=== PATIENT | female | born 1995 | race Caucasian/White ===

== ENCOUNTER 2017-04-28 17:01 | Emergency (ER) | payer MEDICAID, OTHER ==
[~2017-04-28] VITALS: Ht 165.1 cm; Wt 59.0 kg
[~2017-04-28 17:01] MED LIST: IBUP600 PO; OXYC1SOL5 PO
[2017-04-28 17:04] VITALS: BP 113/59; PULSE 87; RESP 15; TEMP 98.1; O2SAT 100
[2017-04-28] MEDS ORDERED: ONDANSETRON HCL 4 MG/2 ML VIAL IVP ONE (17:45)
[2017-04-28] MEDS ORDERED: SODIUM CHLORIDE 0.9% FLUSH 10 ML FLUSH IVF PRN (17:45)
[2017-04-28] MEDS ORDERED: SODIUM CHLOR 0.9% 1000 ML INJ 1,000 ML IV ONE (17:45)
[2017-04-28 18:06] VITALS: BP 96/64; PULSE 75
[2017-04-28] MEDS ORDERED: ZOFR4TAB PO (18:10)
--- NOTE | 2017-04-28 18:10 | PD ---
HPI . Nausea Chief Complaint: GI Complaint Time Seen by Provider: 17:25 Travel History International Travel<30 days: No Contact w/Intl Traveler<30days: No Traveled to known affect area: No History of Present Illness HPI 22-year-old female presents with nausea and vomiting for 1-1/2 weeks. Symptoms are getting progressively worse. Patient took a test on Friday which she reports was positive. She had 4 episodes of emesis yesterday. She has tried eating saltine crackers with no relief. No other known aggravating or alleviating factors. She is having some associated lower abdominal pain that is bilateral, no radiation. Describes the pain as sharp and constant. She denies any vaginal bleeding. Reports some clear discharge. PFSH Past Medical History ADHD: No Bipolar Disorder: Yes Cancer: No Cardiovascular Problems: No Diabetes: No (gestational) Diminished Hearing: No Psychiatric: Yes (HBS 2 YEARS AGO. ASA W DYSTHYMIC DIS.) Immunizations Current: Yes Seizures: No Thyroid Disease: No Ulcer: No Tetanus Vaccination: < 5 Years ?: LMP: 03/02/2017 : 3 Para: 1 : 1 Past Surgical History Other Surgery: No Social History Alcohol Use: No Tobacco Use: No Substance Use: Yes (marijuana) Allergies-Medications (Allergen,Severity, Reaction): Coded Allergies: Calamine (Verified Allergy, Severe, SWELLING, 04/28/17) Reported Meds & Prescriptions Reported Meds & Active Scripts Active Zofran (Ondansetron HCl) 4 Mg Tab 4 Mg PO Q6HR PRN Review of Systems Except as stated in HPI: all other systems reviewed are Neg General / Constitutional: Positive: Other (shaking) Gastrointestinal: Positive: Nausea, Vomiting, Diarrhea, Abdominal Pain Genitourinary: Positive: Pelvic Pain, No: Urgency, Frequency, Dysuria, Vaginal Bleeding Physical Exam Narrative GENERAL: Awake and alert and in no acute distress. SKIN: Warm and dry. HEAD: Atraumatic. Normocephalic. EYES: Pupils equal and round. NECK: Trachea midline. CARDIOVASCULAR: Regular rate and rhythm. RESPIRATORY: No accessory muscle use. GI/: Abdomen is soft and nontender. Nondistended. No masses palpated. Uterus is not palpable above the symphysis pubis. MUSCULOSKELETAL: No obvious deformities. No edema. NEUROLOGICAL: Awake and alert. No obvious cranial nerve deficits. Motor grossly within normal limits. Normal speech. PSYCHIATRIC: Appropriate mood and affect; insight and judgment normal. Data Data Last Documented VS Vital Signs Date Time Temp Pulse Resp B/P Pulse Ox O2 Delivery O2 Flow Rate FiO2 04/28/17 18:06 75 96/64 04/28/17 17:04 98.1 15 100 Orders Ed Poc Ultrasound (04/28/17 17:32) Urinalysis - C+S If Indicated (04/28/17 17:41) Sodium Chloride 0.9% Flush (Ns Flush) (04/28/17 17:45) Ondansetron Inj (Zofran Inj) (04/28/17 17:45) Ed Urine Pregnancytest Poc (04/28/17 17:41) Sodium Chlor 0.9% 1000 Ml Inj (Ns 1000 M (04/28/17 17:45) Labs Laboratory Tests Test 04/28/17 18:05 Urine Color YELLOW Urine Turbidity HAZY Urine pH 6.5 Urine Specific [place] 1.015 Urine Protein 30 mg/dL Urine Glucose (UA) NEG mg/dL Urine Ketones TRACE mg/dL Urine Occult Blood NEG Urine Nitrite NEG Urine Bilirubin NEG Urine Urobilinogen LESS THAN 2.0 MG/DL Urine Leukocyte Esterase NEG Urine RBC 1 /hpf Urine WBC 2 /hpf Urine Squamous Epithelial 26 /hpf Cells Urine Bacteria RARE /hpf Urine Mucus MOD /lpf Microscopic Urinalysis Comment CULT NOT INDICATED MDM Medical Decision Making Medical Screen Exam Complete: Yes Emergency Medical Condition: Yes Differential Diagnosis Differential diagnosis includes but is not limited to viral gastritis, food poisoning, pancreatitis, pneumonia, hepatitis, acute coronary syndrome, Narrative Course Patient presents with the chief complaint of nausea and vomiting in the setting of . She does have lower abdominal discomfort but a benign abdominal exam. She does not appear dehydrated. She'll be treated with IV fluids and IV Zofran. Nausea and vomiting are improved. Patient will be discharged home. Procedures Procedure Narrative Emergency Department Pelvic ultrasound was performed with patient consent. The curvilinear probe was used in the transverse and sagittal views within the suprapubic region revealing an intrauterine yolk sac. Diagnosis Primary Impression: Vomiting affecting Referrals: [facility] Patient Instructions: Acute Nausea and Vomiting (DC), General Instructions Med/Other Pt SpecificInfo: Prescription(s) given Scripts Ondansetron (Zofran)4 Mg Tab4 Mg PO Q6HR PRN (NAUSEA OR VOMITING) #30 TAB Ref 0 Prov:Milli Garcia MD 04/28/17 Disposition: 01 DISCHARGE HOME Condition: Stable Milli Garcia MD Apr 28, 2017 18:10
[2017-04-28 18:21] LABS: BACTERIA, URINE RARE /hpf; BLOOD, URINE NEG (NEG); COMMENT (UR) CULT NOT INDICATED; CULTURE IF INDICATED CULT NOT INDICATED; GLUCOSE,URINE NEG (NEG); KETONE, URINE TRACE mg/dL (NEG); MUCUS URINE MOD /lpf (OCC); NITRITE,URINE NEG (NEG); PH, URINE 6.5 (5.0-8.5); SQUAMOUS EPITHELIAL CELL URINE 26 /hpf (0-5); URINE COLOR YELLOW (YELLW/STRAW)
== END 2017-04-28 19:07 | disposition home or self-care (01) ==
LOC: NEPD 17:01
DX: O21.9 Vomiting of pregnancy, unspecified (principal); R10.30 Lower abdominal pain, unspecified; Z86.59 Personal history of other mental and behavioral disorders; Z3A.00 Weeks of gestation of pregnancy not specified
CPT/HCPCS: 81001; 84703; 96374; 99284; J2405; J7030

== ENCOUNTER 2017-08-21 15:36 | Emergency (ER) | payer MEDICAID, OTHER ==
[~2017-08-21 15:36] MED LIST changes: -IBUP600 PO; -OXYC1SOL5 PO; +ZOFR4TAB PO
--- NOTE | 2017-08-21 16:27 | PD ---
HPI Chief Complaint rib pain, lower abdominal/back pain Date Seen: Aug 21, 2017 Time Seen: 16:14 Travel History International Travel<30 Days: No Contact w/Intl Traveler<30Days: No Known Affected Area: No History of Present Illness HPI Pt is a @ 23.1wks with PNC with Dr. Cardoso. She presents for evaluation of rib and abdominal/back pain which started last evening and continued today. Pt states it feels like she can't take in a deep breath due to discomfort in her lower ribs. No cough, SOB, or CP/pressure. Her son recently had RSV at home but she has not been ill. Her abdominal pain is vague and diffuse and runs into her lower L sciatica. She denies dysuria/hematuria. She was tx'd for chlamydia and BV on 06/17. No KIRK yet. +FM. No LOF, VB, or ctx. She has not taking any tylenol as she does not want to take any medications in . Weeks Gestation: 23 Para: 1 : 3 History Past Medical History Medical History: Denies Significant Hx Obstetric History Obstetric History x1 TAB x1 (D&C) Past Surgical History Narrative Surgical D&C Family History Family History: Negative Social History Alcohol Use: No Tobacco Use: No Substance Abuse: Yes (occasional MJ use) Allergies-Medications (Allergen,Severity, Reaction): Coded Allergies: calamine (Unverified Allergy, Severe, SWELLING, 06/10/17) Home Meds Active Scripts Ondansetron (Zofran) 4 Mg Tab, 4 MG PO Q6HR Y for NAUSEA OR VOMITING, #30 TAB 0 Refills Prov:Milli Garcia MD 04/28/17 Review of Systems Except as stated in HPI: all other systems reviewed are Neg Physical Exam Narrative GENERAL: Well-nourished, well-developed patient. SKIN: Warm and dry. HEAD: Normocephalic and atraumatic. EYES: No scleral icterus. No injection or drainage. CARDIOVASCULAR: Regular rate and rhythm without murmurs, gallops, or rubs. RESPIRATORY: Breath sounds equal bilaterally. No accessory muscle use. ABDOMEN/GI: Abdomen soft, non-tender, fundus just above umbilicus and non-tender , +suprapubic TTP, no rebound or guarding EXTREMITIES: No cyanosis or edema. BACK: Nontender without obvious deformity. No CVA tenderness. NEUROLOGICAL: Awake and alert. Motor and sensory grossly within normal limits. FHTs: present @ 168 TOCO: no ctx seen Data Data Vital Signs Reviewed: Yes MDM Plan 22y/o @ 23.1wks with 1. IUP -- +FHTs 2. abdominal pain -- suprapubic in location -- recent dx of CT/BV with tx but no KIRK -- no rebound/guarding -- UA demonstrates trace blood, no LE/nitrites -- likely RLP 3. back pain -- no CVA tenderness -- consistent with sciatica 4. rib pain -- lungs clear and O2 sats 100% -- likely musculoskeletal -- declines tylenol or flexeril Dispo: d/c home in stable condition Diagnosis Diagnosis: Primary Impression: Additional Impressions: 23 weeks gestation of Abdominal pain affecting Rib pain Sciatic neuralgia Disposition: 01 DISCHARGE HOME Radha Jacob MD Aug 21, 2017 16:27
== END 2017-08-21 16:48 | disposition home or self-care (01) ==
LOC: HOBED 15:36
DX: O26.892 Other specified pregnancy related conditions, second trimester (principal); R10.9 Unspecified abdominal pain; R07.81 Pleurodynia; G58.8 Other specified mononeuropathies; Z3A.23 23 weeks gestation of pregnancy
CPT/HCPCS: 99283

== ENCOUNTER → 2017-11-11 | Outpatient (CLI) | payer MEDICAID | LOC: HPND 09:54 | PROVIDERS: ATTEND Obstetrics & Gynecology | DX: O26.843 Uterine size-date discrepancy, third trimester (principal); O36.5930 Maternal care for other known or suspected poor fetal growth, third trimester, not applicable or unspecified | CPT/HCPCS: 76816 ==

== ENCOUNTER 2017-12-03 20:55 | Emergency (ER) | payer MEDICAID ==
--- NOTE | 2017-12-03 21:31 | PD ---
HPI Chief Complaint Complains of a pressure possible contractions Date Seen: Dec 03, 2017 Time Seen: 21:25 Travel History International Travel<30 Days: No Contact w/Intl Traveler<30Days: No Known Affected Area: No History of Present Illness HPI 42-year-old white female A1 at [address] Cardoso for care presents complaining of pelvic pain and pressure possible contractions. Denies bleeding or leakage of fluid. heart rate tracing is reactive and there are no regular contractions only occasional one Weeks Gestation: 38 Para: 1 : 3 History Obstetric History Obstetric History One vaginal delivery and one early loss Social History Alcohol Use: No Tobacco Use: No Substance Abuse: No Allergies-Medications (Allergen,Severity, Reaction): Coded Allergies: calamine (Unverified Allergy, Severe, SWELLING, 06/10/17) Home Meds Active Scripts Ondansetron (Zofran) 4 Mg Tab, 4 MG PO Q6HR Y for NAUSEA OR VOMITING, #30 TAB 0 Refills Prov:Milli Garcia MD 04/28/17 Review of Systems General / Constitutional: No: Fever, Weight Gain, Chills, Other Eyes: No: Diploplia, Blurred Vision, Visual changes, Pain, Photophobia HENT: No: Headaches, Vertigo, Lightheadedness Cardiovascular: No: Irregular Rhythm, Chest Pain or Discomfort, Palpitations, Tachycardia, Syncope, Varicosities, Edema, Cyanosis Respiratory: No: Cough, Short of Breath, Other Gastrointestinal: Abdominal Pain, No: Nausea, Vomiting, Diarrhea Genitourinary: No: Decreased Urinary Output, Oliguria Musculoskeletal: No: Limited ROM, Weakness, Cramping, Edema, Pain Skin: No Rash, No Itching, No Dryness, No Lumps, No Change in Pigmentation, No Change in Nails, No Alopecia, No Lesions Neurologic: No: Weakness, Dizziness, Syncope, Focal Abnormalities, Coordination Problem, Headache, Slurred Speech, Seizures Psychiatric: No: Depression, Suicidal Ideations, Homicidal Ideation Endocrine: No: Heat Intolerance, Cold Intolerance, Polydipsia, Polyuria, Other Physical Exam Narrative GENERAL: Well-nourished, well-developed patient. SKIN: Warm and dry. HEAD: Normocephalic and atraumatic. EYES: No scleral icterus. No injection or drainage. ENT: No nasal drainage noted. Mucous membranes pink. Airway patent. NECK: Supple, trachea midline. No JVD. CARDIOVASCULAR: Regular rate and rhythm without murmurs, gallops, or rubs. RESPIRATORY: Breath sounds equal bilaterally. No accessory muscle use. BREASTS: Bilateral exam showed no masses , no retractions, no nipple discharge. ABDOMEN/GI: Abdomen soft, non-tender, bowel sounds present, no rebound, no guarding Gravid to [38-] weeks size Fundal Height: [38-] GENITOURINARY: External Genitalia: intact and normal in appearance BUS glands: [-] Cervix: [post-] Dilatation: [1-2-] Effacement: [-70] Station: [-3] Presentation: [-vtx] Membranes: [intact ] Uterine Contractions: [no reg ctx-] FHT's: Category: [1-] Baseline: [-133] Reactive: [-R] Variability: [mod-] Decels: [none-] EXTREMITIES: No cyanosis or edema. BACK: Nontender without obvious deformity. No CVA tenderness. NEUROLOGICAL: Awake and alert. Motor and sensory grossly within normal limits. Five out of 5 muscle strength in all muscle groups. Normal speech. MDM Interpretation(s) Patient's 22-year-old white female at 38 weeks presents quite a pelvic pressure and possible contractions. She's placed on the monitor and has a reactive heart rate tracing. Only occasional contractions. Cervix is 1-2 /70/-3/vertex. Plan Plan to discharge patient home to bedrest. The patient drove herself with a toddler and she has no other her way to get home and so we can I give her narcotic shot however she can take Tylenol, bedrest, oral fluids hydration, heating pad or hot bath for symptom relief and see Dr. Cardoso Diagnosis Diagnosis: Primary Impression: Chucksupriya Gonzalez' contraction Disposition: 01 DISCHARGE HOME Condition: Stable Anastacio Mooney II, MD Dec 03, 2017 21:31
== END 2017-12-03 21:48 | disposition home or self-care (01) ==
LOC: HOBED 20:55
DX: O47.1 False labor at or after 37 completed weeks of gestation (principal); Z3A.38 38 weeks gestation of pregnancy; Z79.899 Other long term (current) drug therapy
CPT/HCPCS: 99284

== ENCOUNTER 2017-12-12 02:54 | Inpatient (IN) | payer MEDICAID ==
[2017-12-12] VITALS (34 sets, daily range): BP systolic 85–129; BP diastolic 52–75; PULSE 74–108; RESP 18–20; TEMP 97.6–97.8; O2SAT 100
[~2017-12-12] VITALS: Ht 160 cm; Wt 70.3 kg
[2017-12-12] MEDS ORDERED: LACTATED RINGER'S 1000 ML INJ 1,000 ML IV PRN (03:23)
--- NOTE | 2017-12-12 03:29 | PD ---
HPI Chief Complaint ctx Date Seen: Dec 12, 2017 Time Seen: 03:24 Travel History International Travel<30 Days: No Contact w/Intl Traveler<30Days: No Known Affected Area: No History of Present Illness HPI 22y/o @ 39.2wks. She has PNC with Dr. Cardoso. She presents for ctx which started at 2am and are becoming increasingly more painful. No LOF or VB. +FM. She was 2cm in clinic on Friday. Weeks Gestation: 39 Para: 1 : 3 History Past Medical History Medical History: Denies Significant Hx Obstetric History Obstetric History TAB x1 x1 Past Surgical History Surgical History: No Previous Surgery Family History Family History: Negative Social History Alcohol Use: No Tobacco Use: No Substance Abuse: Yes (MJ use entire ) Allergies-Medications (Allergen,Severity, Reaction): Coded Allergies: calamine (Unverified Allergy, Severe, SWELLING, 12/12/17) Home Meds Active Scripts Ondansetron (Zofran) 4 Mg Tab, 4 MG PO Q6HR Y for NAUSEA OR VOMITING, #30 TAB 0 Refills Prov:Milli Garcia MD 04/28/17 Review of Systems Except as stated in HPI: all other systems reviewed are Neg Physical Exam Narrative General: well developed, well nourished, no acute distress HEENT: normocephalic atraumatic, extraocular movements intact, neck supple Abdomen: soft, gravid, nontender, nondistended Uterus: fundus term Extremities: full range of motion Skin: normal coloration, no rashes, no suspicious skin lesions noted Neurologic: cranial nerves 2-12 grossly intact, normal muscle tone, normal gait Psychiatric: normal mood and affect, appropriate FHTs: 130s, +accels, no decels, moderate variability, reactive [place]: ctx q2-3m Cvx: 3/80/-1 Data Data Vital Signs Reviewed: Yes Orders Orders Vital Signs (Adult) .ON ADMISSION (12/12/17 03:23) ^ Labor Status (12/12/17 03:23) ^ Non Stress Test (12/12/17 03:23) Admit To Inpatient (12/12/17 ) Vital Signs (Adult) .Per protocol (12/12/17 03:23) Heart (12/12/17 03:23) Amnioinfusion (12/12/17 03:23) Urinary Catheter Management .ONCE (12/12/17 03:23) Diet Liquid (12/12/17 Breakfast) Lactated Ringer's 1000 Ml Inj (Lr 1000 M (12/12/17 03:23) Lactated Ringer's 1000 Ml Inj (Lr 1000 M (12/12/17 03:23) Sodium Chlorid 0.9% 500 Ml Inj (Ns 500 M (12/12/17 03:30) Sodium Chlor 0.9% 1000 Ml Inj (Ns 1000 M (12/12/17 03:43) Lidocaine 1% Inj (50 Ml) (Xylocaine 1% I (12/12/17 03:30) Citric Acid-Sodium Citrate Liq (Bicitra (12/12/17 03:30) Ondansetron Inj (Zofran Inj) (12/12/17 03:30) Fentanyl Inj (Fentanyl Inj) (12/12/17 03:30) Fentanyl Inj (Fentanyl Inj) (12/12/17 03:30) Complete Blood Count With Diff (12/12/17 03:23) Hold Clot (12/12/17 03:23) Abo/Rh Blood Type (12/12/17 03:23) Urinalysis - C+S If Indicated (12/12/17 03:23) Drug Screen, Random Urine (12/12/17 03:23) Resp Oxygen Non Rebreathe Mask (12/12/17 ) ^ Epidural / Intrathecal Infus (12/12/17 03:23) Oxytocin 30 Units-500ml Premix (Pitocin (12/12/17 03:30) Lidocaine 1% Inj (50 Ml) (Xylocaine 1% I (12/12/17 03:30) Light Mineral Oil (Muri-Lube Oil) (12/12/17 03:30) Inpatient Certification (12/12/17 ) Group B Strep: Negative MDM Plan 22y/o @ 39.2wks in early labor. -- admit to L&D -- CLD, epidural/edwards PRN -- FHTs cat 1 -- GBS neg Dispo: Dr. Cardoso (applications engineering manager) notified of pt status and plan of care. He will assume care of the pt. Courtesy orders placed. Diagnosis Diagnosis: Primary Impression: 39 weeks gestation of Additional Impressions: Uterine contractions during Cannabis abuse Radha Jacob MD Dec 12, 2017 03:29
[2017-12-12] MEDS ORDERED: ONDANSETRON HCL 4 MG/2 ML VIAL IV PUSH PRN (03:30)
[2017-12-12] MEDS ORDERED: LIDOCAINE HCL 1% 50 ML VIAL INFIL PRN (03:30)
[2017-12-12] MEDS ORDERED: SODIUM CHLORID 0.9% 500 ML INJ 500 ML IV PRN (03:30)
[2017-12-12] MEDS ORDERED: OXYTOCIN 30 UNITS-500ML PREMIX 500 ML IV ONE ×2 (03:30→11:30)
[2017-12-12] MEDS ORDERED: LIDOCAINE HCL 1% 50 ML VIAL I-DERMAL PRN (03:30)
[2017-12-12] MEDS ORDERED: CITRIC ACID-SODIUM CITRATE LIQ 30 ML UDC PO SCH (03:30)
[2017-12-12] MEDS ORDERED: MINERAL OIL 10 ML VIAL TOPICAL PRN (03:30)
[2017-12-12] MEDS: LACTATED RINGER'S 1000 ML INJ 1,000 ML IV SCH ×2 (03:35→05:36)
[2017-12-12] MEDS ORDERED: SODIUM CHLOR 0.9% 1000 ML INJ 1,000 ML IV PRN (03:43)
[2017-12-12 03:52] LABS: AUTOMATED NEUTROPHIL # 7.4 TH/MM3 (1.8-7.7); BASOPHIL # 0.1 TH/MM3 (0-0.2); BASOPHIL % 0.6 % (0.0-2.0); EOSINOPHIL # 0.2 TH/MM3 (0-0.4); EOSINOPHIL % 1.3 % (0.0-4.0); HEMATOCRIT 30.9 % (35.0-46.0); HEMOGLOBIN 9.9 GM/DL (11.6-15.3); LYMPH % 29.1 % (9.0-44.0); LYMPHOCYTE # 3.6 TH/MM3 (1.0-4.8); MEAN CELL VOLUME 79.7 FL (80.0-100.0); MEAN CORPUSCULAR HEMOGLOBIN 25.7 PG (27.0-34.0); MEAN CORPUSCULAR HGB CONC 32.2 % (32.0-36.0); MEAN PLATELET VOLUME 7.1 FL (7.0-11.0); MONO % 8.5 % (0.0-8.0); NEUT % 60.5 % (16.0-70.0); PLATELET COUNT 447 TH/MM3 (150-450); RED BLOOD COUNT 3.87 MIL/MM3 (4.00-5.30); RED CELL DISTRIBUTION WIDTH 19.7 % (11.6-17.2); WHITE BLOOD COUNT 12.2 TH/MM3 (4.0-11.0)
[2017-12-12 04:04] LABS: BACTERIA, URINE FEW /hpf; BILIRUBIN, URINE NEG (NEG); BLOOD, URINE NEG (NEG); GLUCOSE,URINE NEG (NEG); HYALINE CAST, URINE 1 /lpf (RARE); KETONE, URINE NEG (NEG); MUCUS URINE FEW /lpf (OCC); NITRITE,URINE NEG (NEG); PH, URINE 7.5 (5.0-8.5); SQUAMOUS EPITHELIAL CELL URINE 22 /hpf (0-5); URINE COLOR LIGHT-YELLOW (YELLW/STRAW); URINE LEUKOCYTE ESTERASE MOD (NEG)
[2017-12-12] MEDS ORDERED: fentaNYL 2MCG-BUPIV 0.125% INJ 100 ML ONE (05:05)
[2017-12-12] MEDS ORDERED: fentaNYL 2MCG-BUPIV 0.125% 100 ML EPIDURAL SCH (05:45)
[2017-12-12] MEDS ORDERED: NO SYSTEM NARCOTICS PRN (05:45)
[2017-12-12] MEDS ORDERED: DO NOT ADMINISTER ANTICOAGULANTS PRN (05:45)
[2017-12-12] MEDS ORDERED: ePHEDrine/NS 25 MG/5 ML SYRINGE IV PUSH PRN (05:45)
--- NOTE | 2017-12-12 11:11 | PD.OB.DELI ---
Weeks gestation: 39 Gest age assessed date: Dec 12, 2017 Pt started active labor?: Yes Active labor start date: Dec 12, 2017 Medical induction of labor?: No Artificial rupture of membrane: Yes Artificial ROM date: Dec 12, 2017 Anesthesia: Epidural Episiotomy: None Vaginal Delivery: Normal Presentation: Occiput anterior Nuchal Cord: None Delayed cord clamping (45 sec): Yes Infant: Female Delivery date: Dec 12, 2017 Delivery time: 10:36 One Minute : 8 Five Minute : 9 Weight: 6/13 Placenta: Spontaneous delivery, Intact, 3 vessel cord Laceration: 1 deg Repair: Vicryl running Estimated blood loss: 300cc Additional Information Nice delivery of Shyann. Intact perineum Small superficial left labial laceration repaired with 5-0 vicryl Mom and baby did well Shyann looks like her older brother Sukhi.. Jonathan Cardoso MD Dec 12, 2017 11:11
[2017-12-12] MEDS ORDERED: ACETAMINOPHEN 325 MG TAB PO PRN (11:30)
[2017-12-12] MEDS ORDERED: WITCH HAZEL 50%/GLYCERIN 12.5% 40 PAD JAR TOPICAL PRN (11:30)
[2017-12-12] MEDS ORDERED: OXYTOCIN 30 UNITS-500ML PREMIX 500 ML IV SCH (11:30)
[2017-12-12] MEDS ORDERED: BENZOCAINE 20% TOPICAL SPRAY 60 ML CAN TOPICAL PRN (11:30)
[2017-12-12] MEDS ORDERED: oxyCODONE/ACETAMINOPHEN 5 MG/325 MG TAB PO PRN ×2 (11:30)
[2017-12-12] MEDS ORDERED: ALUMINUM/MAGNESIUM/SIMETH 30 ML CUP PO PRN (11:30)
[2017-12-12] MEDS ORDERED: ONDANSETRON ODT 4 MG TAB PO PRN (11:30)
[2017-12-12] MEDS ORDERED: SODIUM CHLORIDE 0.9% FLUSH 10 ML FLUSH IV FLUSH PRN (11:30)
[2017-12-12] MEDS: IBUPROFEN 800 MG TAB PO PRN ×2 (13:18→21:51)
[2017-12-12] MEDS ORDERED: DIPHTH/TETANUS/ACEL PERTUSSIS (BOOSTER) 0.5 ML VIAL/PFS IM ONE (16:00)
[2017-12-12] MEDS ORDERED: MEASLES, MUMPS, RUBELLA VACCINE 0.5 ML VIAL SQ ONE (16:00)
[2017-12-12] MEDS ORDERED: ZOLPIDEM TARTRATE 5 MG TAB PO PRN (21:00)
[2017-12-12] MEDS ORDERED: SODIUM CHLORIDE 0.9% FLUSH 10 ML FLUSH IV FLUSH SCH (21:00)
[2017-12-12] MEDS: DOCUSATE SODIUM 50 MG/SENNA 8.6 MG TAB PO PRN (21:50)
[2017-12-13 08:00] VITALS: BP 101/58; PULSE 78; RESP 15; TEMP 97.6; O2SAT 97
[2017-12-13] MEDS: IBUPROFEN 800 MG TAB PO PRN (08:21)
[2017-12-13] MEDS: DOCUSATE SODIUM 50 MG/SENNA 8.6 MG TAB PO PRN (12:27)
[2017-12-13] MEDS ORDERED: IBUP1TAB7 PO (16:46)
[2017-12-13] MEDS ORDERED: OXYC1TAB63 PO (16:46)
--- NOTE | 2017-12-13 16:46 | HHI.DCPOC ---
Discharge Care Plan Diagnosis: (1) Vaginal delivery Report Symptoms to Your Doctor -Temperature above 100.5 degrees -Redness, of incision or excessive or foul smelling drainage -Unusual pain or calf pain -Increased vaginal bleeding -Painful or difficulty urinating -Feelings of extreme sadness or anxiety after 2 weeks Goals to Promote Your Health * To prevent worsening of your condition and complications * To maintain your health at the optimal level Directions to Meet Your Goals Take your medications as prescribed Follow your dietary instruction Follow activity as directed Ensure plenty of rest for recovery Drink fluids for hydration Keep your appointments as scheduled Take your immunizations and boosters as scheduled If your symptoms worsen call your PCP, if no PCP go to Urgent Care Center or Emergency Room Smoking is Dangerous to Your Health. Avoid second hand smoke Call the 24-hour crisis hotline for domestic abuse at Jonathan Cardoso MD Dec 13, 2017 16:46
== END 2017-12-13 17:14 | disposition home or self-care (01) | DRG 775 ==
LOC: HOBED 02:54 → H2EB 03:25 → H1EA 12:56
PROVIDERS: ADMIT Obstetrics & Gynecology; ATTEND Obstetrics & Gynecology
PROC: 10E0XZZ Delivery of Products of Conception, External Approach (ICD-10-PCS; principal; 2017-12-12)
PROC: 10907ZC Drainage of Amniotic Fluid, Therapeutic from Products of Conception, Via Natural or Artificial Opening (ICD-10-PCS; 2017-12-12)
PROC: 0HQ9XZZ Repair Perineum Skin, External Approach (ICD-10-PCS; 2017-12-12)
DX: O99.324 Drug use complicating childbirth (principal); F12.10 Cannabis abuse, uncomplicated; O70.0 First degree perineal laceration during delivery; Z3A.39 39 weeks gestation of pregnancy; Z37.0 Single live birth
CPT/HCPCS: 76818; 80307; 81001; 85025; 86900; 86901; G0481; J3010; J7120

== ENCOUNTER 2018-04-02 21:04 | Emergency (ER) | payer MEDICAID ==
[~2018-04-02 21:04] MED LIST changes: +IBUP1TAB7 PO; +OXYC1TAB63 PO; -ZOFR4TAB PO
== END 2018-04-02 23:30 | disposition left against medical advice (07) ==
LOC: NED 21:04
DX: R51 Headache (principal); Z53.21 Procedure and treatment not carried out due to patient leaving prior to being seen by health care provider
CPT/HCPCS: 99281